=== PATIENT | female | born 1950 ===

== ENCOUNTER 2016-08-18 17:14 | Emergency (ER) | payer MEDICARE ==
--- NOTE | 2016-08-18 17:38 | UC ---
Eye Complaint HPI - HPI Summary HPI Summary: right eye redness that started 4 days ago started as a small red dot approx 4 days ago and then increased throughout the day denies vision changes denies itchiness and drainage from eye denies any trauma to eye, doesn't wear contact lenses Sameer Carbajal for her [facility] eye [facility]-last exam 8 months ago hasn't taken any medication for her headache because the pain passes quickly denies nausea, photophobia hx of DM, HTN which are both controlled intermittent headaches that last for approx 1-2 minutes for the last 3 days hx of similiar headaches 1-2 days per year - History of Current Complaint Chief Complaint: UCEye Stated Complaint: RIGHT EYE COMPLAINT Time Seen by Provider: 08/18/16 17:22 Hx Obtained From: Patient Location of Injury: Conjunctiva Character: Dull Aggravating Factor(s): Nothing Alleviating Factor(s): Nothing - Risk Factors Penetrating Injury Risk Factor: Negative Globe Rupture Risk Factors: Negative Acute Glaucoma Risk Factors: Diabetes - Allergies/Home Medications Allergies/Adverse Reactions: Allergies Allergy/AdvReac Type Severity Reaction Status Date / Time No Known Allergies Allergy Verified 08/18/16 17:29 Home Medications: Home Medications Aspirin [Aspirin 81 MG TAB] 81 mg PO QAM 08/18/16 [History Confirmed 08/18/16] PMH/Surg Hx/FS Hx/Imm Hx Previously Healthy: Yes Endocrine History Of: Reports: Diabetes, Dyslipidemia - hyperlipidemia Cardiovascular History Of: Reports: Hypertension Cancer History Of: Reports: Breast Cancer - Surgical History Surgical History: Yes Surgery Procedure, Year, and Place: LEFT MASTECTOMY, SINUS SURGERY (1994) - Family History Known Family History: Positive: Cardiac Disease - triple and quadruple bypass - father, [place]-mother, Hypertension, Diabetes, Other - colon CA - father - Social History Occupation: Employed Full-time Lives: With Family Alcohol Use: None Substance Use Type: None Smoking Status (MU): Former Smoker When Did the Patient Quit Smoking/Using Tobacco: 15 YRS AGO Review of Systems Constitutional: Negative Skin: Negative Eyes: Eye Redness ENT: Negative Respiratory: Negative Cardiovascular: Negative Gastrointestinal: Negative Genitourinary: Negative Motor: Negative Neurovascular: Negative Musculoskeletal: Negative Neurological: Headache Psychological: Negative All Other Systems Reviewed And Are Negative: Yes Physical Exam Triage Information Reviewed: Yes Appearance: No Pain Distress, Well-Nourished, Ill-Appearing Vital Signs: Initial Vital Signs Temp 98.6 F 08/18/16 17:18 Pulse 83 08/18/16 17:18 Resp 18 08/18/16 17:18 BP 138/78 08/18/16 17:18 Pulse Ox 98 08/18/16 17:18 Vital Signs Reviewed: Yes Eyes: Positive: Other: - right eye with small hemmorhage fundoscopic exam- normal bilaterally. Negative: Discharge ENT: Positive: Pharynx normal, TMs normal. Negative: Nasal congestion Neck: Positive: No Lymphadenopathy Respiratory: Positive: Lungs clear, Normal breath sounds, No respiratory distress Cardiovascular: Positive: RRR, No Murmur, Pulses Normal, Brisk Capillary Refill Abdomen Description: Positive: Nontender, Soft, Distended Bowel Sounds: Positive: Present Musculoskeletal: Positive: No Edema Neurological: Positive: Alert, Other: - CN [id number] normal Psychological Exam: Normal Skin Exam: Normal Eye Complaint Course/Dx - Course Course Of Treatment: exam completed. no hx of trauma, no pain, no vision changes. subconjunctival hemorrage and followup with opthamologist. headache- will recommend NSAIDS no red flage to warrant imaging - Differential Dx/Diagnosis Differential Diagnosis/HQI/PQRI: Conjunctivitis, Other - subconjunctival hemmorrhage Provider Diagnoses: right subconjunctival hemmorrhage Discharge - Discharge Plan Condition: Stable Disposition: HOME Patient Education Materials: Subconjunctival Hemorrhage (ED), Acute Headache ( ED) Referrals: Gracia Cotton MD [Primary Care Provider] - Additional Instructions: You have a subconjunctival hemorrhage in your right eye. This condition is self-limiting and will resolve in 1-2 weeks Please call you opthamologist and schedule your annual exam in the next week Increase fluids and rest Take acetaminophen or ibuprofen for fever or pain Please review your discharge instructions. If your symptoms do not improve please call your primary care provider or return to urgent care. Your blood pressure is pre-hypertensive reading. Please contact your primary care provider within 1 day -4 weeks for further evaluation.
[2016-08-18 17:48] VITALS: BP 138/78
== END 2016-08-18 18:03 | disposition home or self-care (01) ==
LOC: UCCORT 17:14
DX: B30.3 Acute epidemic hemorrhagic conjunctivitis (enteroviral) (principal); R51 Headache; E11.9 Type 2 diabetes mellitus without complications; E78.5 Hyperlipidemia, unspecified; I10 Essential (primary) hypertension; Z85.3 Personal history of malignant neoplasm of breast; Z87.891 Personal history of nicotine dependence
CPT/HCPCS: 99212; G0463

== ENCOUNTER 2016-08-20 08:35 | Emergency (ER) | payer MEDICARE ==
[2016-08-20 08:50] VITALS: BP 123/76
--- NOTE | 2016-08-20 09:30 | UC ---
Throat Pain/Nasal Jacinto HPI - HPI Summary HPI Summary: SINUS PAIN AND PRESSURE X 7 DAYS + SORE THROAT , COUGH, NO FEVER, NO CHILLS - History of Current Complaint Chief Complaint: UCRespiratory Stated Complaint: SINUS EARS SORE THROAT Time Seen by Provider: 08/20/16 08:54 Hx Obtained From: Patient Onset/Duration: Gradual Onset, Lasting Days - 7, Still Present Severity: Moderate Pain Intensity: 6 Cough: Nonproductive Associated Signs & Symptoms: Positive: Sinus Discomfort, Nasal Discharge. Negative: Fever, Rash - Allergies/Home Medications Allergies/Adverse Reactions: Allergies Allergy/AdvReac Type Severity Reaction Status Date / Time No Known Allergies Allergy Verified 08/20/16 08:42 Home Medications: Home Medications Calcium Carbonate-Vitamin D [Calcium 600+D] 1 tab PO DAILY 08/20/16 [History Confirmed 08/20/16] PMH/Surg Hx/FS Hx/Imm Hx Endocrine History Of: Reports: Diabetes, Dyslipidemia - hyperlipidemia Cardiovascular History Of: Reports: Hypertension Cancer History Of: Reports: Breast Cancer - Surgical History Surgical History: Yes Surgery Procedure, Year, and Place: LEFT MASTECTOMY, SINUS SURGERY (1994) - Family History Known Family History: Positive: Cardiac Disease - triple and quadruple bypass - father, [place]-mother, Hypertension, Diabetes, Other - colon CA - father - Social History Alcohol Use: None Substance Use Type: None Smoking Status (MU): Former Smoker When Did the Patient Quit Smoking/Using Tobacco: 15 YRS AGO - Immunization History Most Recent Influenza Vaccination: FALL 2015 Most Recent Pneumonia Vaccination: FALL 2015 Review of Systems Constitutional: Chills, Fatigue Skin: Negative Eyes: Negative ENT: Sore Throat, Nasal Discharge Respiratory: Cough Cardiovascular: Negative Gastrointestinal: Negative Genitourinary: Negative All Other Systems Reviewed And Are Negative: Yes Physical Exam Triage Information Reviewed: Yes Appearance: Well-Appearing, No Pain Distress, Well-Nourished Vital Signs: Initial Vital Signs Temp 100.1 F 08/20/16 08:44 Pulse 109 08/20/16 08:44 Resp 18 08/20/16 08:44 BP 123/76 08/20/16 08:44 Pulse Ox 97 08/20/16 08:44 Vital Signs Reviewed: Yes Eyes: Positive: Conjunctiva Clear ENT: Positive: Normal ENT inspection, Hearing grossly normal, Pharyngeal erythema, Nasal congestion, Nasal drainage Neck: Positive: Supple, Nontender, No Lymphadenopathy Respiratory: Positive: Chest non-tender, Lungs clear, Normal breath sounds, No respiratory distress, No accessory muscle use Cardiovascular: Positive: RRR, No Murmur, Pulses Normal, Brisk Capillary Refill Abdomen Description: Positive: Nontender, No Organomegaly, Soft, Bruit Musculoskeletal Exam: Normal Throat Pain/Nasal Course/Dx - Differential Dx/Diagnosis Provider Diagnoses: SINUSITIS Discharge - Discharge Plan Condition: Stable Disposition: HOME Prescriptions: Amoxicillin/Clavulanate TAB* [Augmentin TAB 875*] 875 mg PO BID #20 tab Patient Education Materials: Sinusitis (ED) Referrals: Gracia Cotton MD [Primary Care Provider] - Additional Instructions: FOLLOW UP NEEDED
== END 2016-08-20 09:22 | disposition home or self-care (01) ==
LOC: UCCORT 08:35
DX: J32.9 Chronic sinusitis, unspecified (principal); E78.5 Hyperlipidemia, unspecified; I10 Essential (primary) hypertension; Z85.3 Personal history of malignant neoplasm of breast; Z87.891 Personal history of nicotine dependence
CPT/HCPCS: 87651; 99212; G0463